=== PATIENT | male | born 1965 | race Caucasian/White ===

== ENCOUNTER 2016-10-16 11:08 | Emergency (ER) | payer SELFPAY ==
[~2016-10-16] VITALS: Ht 177.8 cm; Wt 97.0 kg
[2016-10-16 11:15] VITALS: BP 150/87; PULSE 73; RESP 16; TEMP 98.1; O2SAT 96
[2016-10-16] MEDS ORDERED: NAPR500T PO (11:29)
[2016-10-16] MEDS ORDERED: KETOROLAC TROMETHAMINE 60 MG/2 ML (IM) VIAL IM ONE (12:00)
[2016-10-16] MEDS ORDERED: COLCHICINE 0.6 MG TAB PO ONE (12:00)
[2016-10-16] MEDS ORDERED: LIDOCAINE HCL 1% 50 ML VIAL INFIL ONE (12:00)
--- NOTE | 2016-10-16 12:24 | RADHPO ---
EXAM DATE/TIME: 10/16/2016 12:13 [place] COMPARISON: No previous studies available for comparison. INDICATIONS : Left knee pain and swelling MEDICAL HISTORY : None. SURGICAL HISTORY : None. ENCOUNTER: Initial ACUITY: 3 days PAIN SCORE: 8/10 LOCATION: Left entire knee FINDINGS: The exam demonstrates a large joint effusion in the suprapatella bursa. The osseous structures are in tact. No acute fracture seen. CONCLUSION: 1. Large joint effusion. No acute fracture. William Gonzáles MD on October 16, 2016 at 12:21 Board Certified Radiologist. This report was verified electronically.
[2016-10-16] MEDS ORDERED: IBUP-232 PO (14:04)
--- NOTE | 2016-10-16 14:04 | PD ---
HPI Chief Complaint: Edema Time Seen by Provider: 11:25 Travel History International Travel<30 days: No Contact w/Intl Traveler<30days: No Traveled to known affect area: No History of Present Illness HPI 51yo M with PMH of gout and bursitis of left knee here with c/o swelling and pain in left knee for a few days. Denies any fever, trauma, chest pain, sob, n/ v, abdominal pain, focal weakness or numbness. Pt states last time he can bursitis of left knee, they took out fluid and he felt much better. PFSH Past Medical History Diminished Hearing: No Gout: Yes Past Surgical History Appendectomy: Yes Social History Alcohol Use: No Tobacco Use: No Allergies-Medications (Allergen,Severity, Reaction): Coded Allergies: No Known Allergies (Unverified , 10/16/16) Reported Meds & Prescriptions Reported Meds & Active Scripts Active Ibuprofen 600 Mg Tab 600 Mg PO Q8HR PRN Reported Naproxen 500 Mg Tab 500 Mg PO BID Review of Systems Except as stated in HPI: all other systems reviewed are Neg Physical Exam Narrative GENERAL: 51yo M in mild distress. SKIN: Focused skin assessment warm/dry. HEAD: Atraumatic. Normocephalic. CARDIOVASCULAR: Regular rate and rhythm. No murmur appreciated. RESPIRATORY: No accessory muscle use. Clear to auscultation. Breath sounds equal bilaterally. GASTROINTESTINAL: Abdomen soft, non-tender, nondistended. MUSCULOSKELETAL: Left knee: +Effusion and edema of left knee. No erythema. Not hot to palpation. DP 2+. Decreased ROM. Sensation intact. NEUROLOGICAL: Awake and alert. No obvious cranial nerve deficits. Motor grossly within normal limits. Normal speech. PSYCHIATRIC: Appropriate mood and affect; insight and judgment normal. Data Data Last Documented VS Vital Signs Date Time Temp Pulse Resp B/P Pulse Ox O2 Delivery O2 Flow Rate FiO2 10/16/16 11:15 98.1 73 16 150/87 96 Orders Knee, Ltd (1 Or 2vws) (10/16/16 ) Lidocaine 1% Inj (50 Ml) (Xylocaine 1% I (10/16/16 12:00) Ketorolac Inj (Toradol Inj) (10/16/16 12:00) Colchicine (Colchicine) (10/16/16 12:00) Synovial Fluid Crystals (10/16/16 13:13) Synovial Fluid Glucose (10/16/16 13:13) Synovial Fluid Total Protein (10/16/16 13:13) Synovial Fl Cell Count + Diff (10/16/16 13:13) Fluid Culture And Gram Stain (10/16/16 18:02) Labs Laboratory Tests Test 10/16/16 13:45 Synovial Fluid Color YELLOW Synovial Fluid Appearance MODERATE Synovial Fluid WBC 126 /MM3 Synovial Fluid RBC 1360 /MM3 Synovial Fluid Neutrophils 91 % Synovial Fluid Lymphocytes 3 % Synovial Fluid Monocytes 6 % Synovial Fluid Crystals NONE MDM Medical Decision Making Medical Screen Exam Complete: Yes Emergency Medical Condition: Yes Differential Diagnosis Bursitis vs. gout Narrative Course 51yo M with left knee swelling and pain. Pt is nontoxic appearing and denies any fever or trauma. Pt had bursitis in left knee before and likely reaccumulation of synovial fluid in left knee from bursitis. Xray left knee showed large joint effusion. No acute fracture. Pt also had history of gout in his foot before. Pt given toradol 30mg IM and colchicine which helped with pain. Will do arthrocentesis for symptomatic relieve as well as sent fluid for crystals and gram stain. I do not think that pt has septic joint from presentation but will send. Pt does not want to wait for the fluid analysis so obtained phone number [phone] and will call pt if synovial fluid analysis concerning for septic arthritis although clinically pt has no signs of septic arthritis. Pt feels much better after arthrocentesis with improvement of ROM. Return precautions given. Synovial fluid showed normal WBC of 126 so unlikely to be septic joint. RBC 1360. Crystals negative. Gram stain showed no organisms. Culture negative. Procedures Procedure Narrative Arthrocentesis of left knee: Left knee was prepped and cleaned with betadine. 4cc of 1% lidocaine used to anesthesized medial aspect of left knee below the patella. 75cc of synovial fluid obtained. It was yellow in color except for the last 15cc which had some blood in it. Pt tolerated procedure well. Diagnosis Primary Impression: Effusion, left knee Patient Instructions: General Instructions Departure Forms: Tests/Procedures Additional Instructions: Please follow up with your PMD in 3-7 days. Return to the ED if symptoms worsen. Med/Other Pt SpecificInfo: Prescription(s) given Scripts Ibuprofen 600 Mg [id number] Mg PO Q8HR PRN (PAIN) #20 TAB Ref 0 Prov:Butcher,Deann DO 10/16/16 Disposition: 01 DISCHARGE HOME Condition: Stable Deann Butcher DO Oct 16, 2016 14:04 Deann Butcher DO Oct 16, 2016 14:04
[2016-10-16 15:25] LABS: WBC, SYNOVIAL FLUID 126 /MM3 (0-200)
[2016-10-18 23:51] LABS: TOTAL PROTEIN, SYNOVIAL FLUID 4.1 g/dL (1.0-3.0)
== END 2016-10-16 14:33 | disposition home or self-care (01) ==
LOC: PHED 11:08
DX: M25.462 Effusion, left knee (principal)
CPT/HCPCS: 20610; 73560; 82945; 84157; 87070; 87205; 89051; 89060; 96372; 99284; J1885

== ENCOUNTER 2016-10-19 12:00 | Emergency (ER) | payer SELFPAY ==
[~2016-10-19] VITALS: Ht 177.8 cm; Wt 99.0 kg
[~2016-10-19 12:00] MED LIST: IBUP-232 PO; NAPR500T PO
[2016-10-19 12:04] VITALS: BP 139/85; PULSE 86; RESP 16; TEMP 97.9; O2SAT 96
[2016-10-19] MEDS ORDERED: TRAM50TA PO (12:53)
--- NOTE | 2016-10-19 12:53 | PD ---
HPI Chief Complaint: Musculoskeletal Complaint Time Seen by Provider: 12:46 Travel History International Travel<30 days: No Contact w/Intl Traveler<30days: No Traveled to known affect area: No History of Present Illness HPI 51-year-old male presents to the emergency room for evaluation of left knee pain and swelling for the past 5 days. Patient came to the emergency room 3 days ago and had a therapeutic arthrocentesis with cultures that were negative. He felt immediately better after but states yesterday his pain seemed to increase and worsen. He denies worsening of swelling. Patient states all day yesterday he had to sit down with his leg elevated. He has been applying ice, heat, trying range of motion exercises, and taking Motrin without relief in symptoms. Patient is able to fully straighten his legs unless he is walking with crutches. He can only bend it a small amount before pain is too severe. He denies paresthesias. No chronic medical conditions or daily medications. Patient denies fever, chills, nausea, and vomiting. PFSH Past Medical History Diminished Hearing: No Gout: Yes ?: Not Past Surgical History Appendectomy: Yes Social History Alcohol Use: No Tobacco Use: No Substance Use: No Allergies-Medications (Allergen,Severity, Reaction): Coded Allergies: No Known Allergies (Unverified , 10/19/16) Reported Meds & Prescriptions Reported Meds & Active Scripts Active Tramadol (Tramadol HCl) 50 Mg Tab 50 Mg PO Q8H PRN Ibuprofen 600 Mg Tab 600 Mg PO Q8HR PRN Reported Naproxen 500 Mg Tab 500 Mg PO BID Review of Systems Except as stated in HPI: all other systems reviewed are Neg Physical Exam Narrative GENERAL: Well-nourished, well-developed male in no acute distress. Afebrile. Ambulatory with crutches. SKIN: Focused skin assessment warm/dry. No erythema or ecchymosis. No significantly increased warmth. HEAD: Normocephalic. EYES: No scleral icterus. No injection or drainage. NECK: Supple, trachea midline. No JVD or lymphadenopathy. CARDIOVASCULAR: Regular rate and rhythm without murmurs, gallops, or rubs. RESPIRATORY: Breath sounds equal bilaterally. No accessory muscle use. EXTREMITY: Left knee mildly tender to palpation especially posteriorly. Mild effusion noted. No significant edema. Full extension. Patient can flex approximately 30. 2+ dorsalis pedis pulse distally. Data Data Last Documented VS Vital Signs Date Time Temp Pulse Resp B/P Pulse Ox O2 Delivery O2 Flow Rate FiO2 10/19/16 12:04 97.9 86 16 139/85 96 Orders ^ Stevan Bandage (10/19/16 12:53) MDM Medical Decision Making Medical Screen Exam Complete: Yes Emergency Medical Condition: Yes Medical Record Reviewed: Yes Differential Diagnosis Effusion, septic arthritis, gout Narrative Course 51-year-old male with a history of bursitis and gout presents to the emergency room for evaluation of left knee pain and swelling for the past 5 days. Patient came to the emergency room 3 days ago for the same complaint and had a negative x-ray and therapeutic arthrocentesis with cultures. Cultures were negative. No crystals seen. Mild amount of blood. Patient is not on blood thinners. He denies any trauma or injury to the knee. Physical exam reveals left lower extremity is neurovascularly intact with 2+ dorsalis pedis pulse. He has full extension and can bend his knee approximately 30. I do not suspect septic arthritis at this time. There is no erythema, patient has moderate range of motion, no systemic signs of infection, and culture performed 3 days ago did not grow out any bacteria over 3 days. Patient was told to continue orthopedic instructions, take ibuprofen for pain. He was discharged with short course of tramadol. Told to return for worsening symptoms. He understands and agrees to plan. Diagnosis Primary Impression: Effusion, left knee Referrals: Orthopedist Primary Care Physician Patient Instructions: General Instructions, Swollen Knee Joint (ED) Additional Instructions: Rest and drink plenty of fluids. Takes tramadol as directed, as needed for pain. Do not drink alcohol or drive taking this medication. Take ibuprofen with food as directed, as needed for pain. Elevate, keep wrapped, and apply ice to the affected area for 20 minutes at a time, as needed for pain and swelling. Follow-up with a primary care physician. Return to the emergency room for worsening symptoms. Med/Other Pt SpecificInfo: Prescription(s) given Scripts Tramadol 50 Mg Tab50 Mg PO Q8H PRN (PAIN) #12 TAB Ref 0 Prov:Eyad Slaughter MD 10/19/16 Disposition: 01 DISCHARGE HOME Condition: Stable Cara Guzman Oct 19, 2016 12:53
== END 2016-10-19 13:03 | disposition home or self-care (01) ==
LOC: PHEFT 12:00
DX: M25.462 Effusion, left knee (principal)
CPT/HCPCS: 99283